=== PATIENT | female | born 1970 | race Caucasian/White ===

== ENCOUNTER 2016-11-05 11:27 | Observation (INO) | payer MEDICAID ==
[2016-11-05] MEDS: SOLU-Medrol 125 MG VIAL IVP SCH ×2 (15:15→21:32)
[2016-11-05] MEDS: MORPHINE SULFATE INJ 2 MG IVP PRN ×2 (15:15→19:51)
[2016-11-05 17:42] LABS: BASOPHILS # (AUTO) 0.1 X10^3/uL (0.0-0.1); BASOPHILS % (AUTO) 0.6 % (0.2-1.0); EOSINOPHILS % (AUTO) 0.4 % (0.9-2.9); HEMATOCRIT 42.4 % (36.0-47.0); HEMOGLOBIN 14.4 g/dL (12.0-16.0); MEAN CORPUSCULAR HEMOGLOBIN 29.9 pg (27.0-34.0); MEAN CORPUSCULAR HGB CONC 33.9 g/dL (33.0-35.0); MEAN CORPUSCULAR VOLUME 88.2 fL (80.0-100.0); MEAN PLATELET VOLUME 8.1 fL (7.4-11.0); MONOCYTES # (AUTO) 0.2 x10^3/uL (0.3-0.8); MONOCYTES % (AUTO) 1.8 % (0.0-13.0); NEUTROPHILS # (AUTO) 9.4 x10^3/uL (2.2-4.8); NEUTROPHILS % (AUTO) 80.2 % (42.0-75.0); PLATELET COUNT 395 X10^3/uL (150.0-450.0); RED CELL DISTRIBUTION WIDTH 14.1 % (11.6-16.5); WHITE BLOOD COUNT 11.7 X10^3/uL (3.6-10.0)
[2016-11-05 17:45] VITALS: BMI 27.7
[2016-11-05 17:53] LABS: ALANINE AMINOTRANSFERASE 20 Units/L (12-78); ALBUMIN 3.9 g/dL (3.4-5.0); ALKALINE PHOSPHATASE 96 Units/L (46-116); ASPARTATE AMINO TRANSFERASE 13 Units/L (15-37); BLOOD UREA NITROGEN 15 mg/dL (7-18); CALCIUM 9.1 mg/dL (8.5-10.1); CARBON DIOXIDE 30.4 mmol/L (21-32); CHLORIDE 104 mmol/L (98-107); COR NA(FOR HYPERGLY) 141 mmol/L (136-145); GLUCOSE 134 mg/dL (65-99); SODIUM 140 mmol/L (136-145); TOTAL PROTEIN 8.7 g/dL (6.4-8.2); eGFR BLACK RACES > 60 (>60); eGFR NON BLACK RACES > 60 (>60)
--- NOTE | 2016-11-05 18:47 | MRI ---
HISTORY: Low back pain. Study: MRI lumbar spine without contrast. Comparison: None. Technique: Multiplanar multi-sequence MRI of the lumbar spine was obtained. Sagittal T1, sagittal T 2, and stir weighted images, axial T1, and axial T2 images were obtained. Findings: Anatomic alignment without acute fracture or listhesis. Multilevel disc desiccation without signific ant disc height loss. The visualized bone marrow signal appears normal. Conus medullaris terminates at L1-L2. The visualized soft tissues appear normal. L1 -- L2: No significant disc bulge, neural foraminal narrowing, or spinal canal stenosis. L2 -- L3: No significant disc bulge, neural foraminal narrowing, or spinal canal stenosis. L3 -- L4: No significant disc bulge, neural foraminal narrowing, or spinal canal stenosis. L4 -- L5: Broad-based disc bulge that extends into the lateral recesses causing mild bilateral neura l foraminal narrowing. No significant spinal canal stenosis. L5 -- S1: Broad-based disc bulge that extends into the lateral recesses causing mild left neural for aminal narrowing. No significant right neural foraminal narrowing or spinal canal stenosis. Posterio r annular tear. IMPRESSION: Broad-based disc bulges at L4 through S1 causing mild neural foraminal narrowing. No sig nificant spinal canal stenosis. Reported By:
[2016-11-05 18:57] LABS: BILIRUBIN,URINE NEGATIVE (NEGATIVE); BLOOD/HEMOGLOBIN,URINE NEGATIVE (NEGATIVE); GLUCOSE, URINE NEGATIVE (NEGATIVE); KETONES,URINE NEGATIVE (NEGATIVE); LEUKOCYTE ESTERASE ,URINE NEGATIVE (NEGATIVE); NITRITES,URINE NEGATIVE (NEGATIVE); PROTEIN,URINE NEGATIVE (NEGATIVE); UROBILINOGEN,URINE NORMAL (NORMAL)
[2016-11-05 19:15] LABS: APPEARANCE,URINE CLEAR (CLEAR); BACTERIA,URINE NEGATIVE /HPF (NEGATIVE); COLOR,URINE YELLOW (YELLOW); RBC,URINE NONE SEEN /HPF (NEGATIVE); SQUAMOUS EPITHELIAL CELL,UR RARE /HPF (NEGATIVE)
[2016-11-05] MEDS ORDERED: BENTYL CAP 10 MG PO PRN (20:28)
[2016-11-05] MEDS ORDERED: ULTRAM PO PRN (20:28)
[2016-11-05] MEDS ORDERED: TYLENOL #3 TAB (W/CODEINE) PO PRN (20:28)
[2016-11-05] MEDS ORDERED: LYRICA CAP 100 MG PO PRN (20:28)
[2016-11-05] MEDS ORDERED: ALBUTEROL SULFATE INH PRN (20:28)
[2016-11-05] MEDS ORDERED: PROVENTIL NEB TX 0.083% 2.5MG/ 3ML NEB PRN (20:56)
[2016-11-05] MEDS ORDERED: PROVENTIL NEB TX 0.083% 2.5MG/ 3ML NEB SCH (21:00)
[2016-11-05] MEDS ORDERED: FLUTICASONE SALMETEROL INH SCH (21:00)
[2016-11-05] MEDS ORDERED: PULMICORT NEB TX 0.5 MG NEB SCH (21:00)
[2016-11-05] MEDS: FLEXERIL TAB 10 MG PO SCH (21:32)
[2016-11-05] MEDS: LIPITOR TAB 10 MG PO SCH (21:32)
[2016-11-06] MEDS: SOLU-Medrol 125 MG VIAL IVP SCH ×2 (05:37→13:33)
[2016-11-06] MEDS: MORPHINE SULFATE INJ 2 MG IVP PRN ×2 (05:37→11:39)
[2016-11-06] MEDS: FLEXERIL TAB 10 MG PO SCH ×2 (08:15→20:58)
--- NOTE | 2016-11-06 08:34 | DR.H&P ---
H&P - History & Physical for Day of: H&P Date: 11/05/16 - Chief Complaint Chief Complaint: BACK PAIN - Allergies Allergies/Adverse Reactions: Allergies Allergy/AdvReac Type Severity Reaction Status Date / Time Penicillins Allergy Verified 11/05/16 15:26 - Past Medical History Past Medical History: Asthma, Dyslipidemia Additional Medical History: Vitamin D deficiency, Fatty Liver, Lumbar Disc Protrusion - Past Surgical History Surgical History: Appendectomy, Hysterectomy - Family History Family Medical History: [place], Coronary Artery Disease, Hypertension - Social History Does patient currently use any type of tobacco product: No Have you used tobacco products in the last 12 months: No Type of Tobacco Use: None Does any household member use tobacco: Yes (DAUGHTER) Alcohol Use: None Drug Use: Prescription Drugs - Medications Home Medications: Acetaminophen/Codeine Tab [TYLENOL w/CODEINE #3 (300 MG/30 MG) *] 1 - 2 tab PO TID PRN 11/05/16 [History Confirmed 11/05/16] Albuterol Sulfate [Proventil HFA Inhaler 6.7 gm] 1 inh INH Q6H PRN 11/05/16 [ History Confirmed 11/05/16] Atorvastatin Calcium 10 mg PO HS 11/05/16 [History Confirmed 11/05/16] Cyclobenzaprine HCl [FLEXERIL 10 MG *] 10 mg PO BID 11/05/16 [History Confirmed 11/05/16] Dicyclomine HCl 1 tab PO Q6H PRN 11/05/16 [History Confirmed 11/05/16] Fluticasone-Salmeterol 500/50 [ADVAIR DISKUS 500/50 60-DOSE *] 1 inh INH BID [History Confirmed 11/05/16] Loratadine 10 mg 24-Hr Tab [LORATADINE 10 MG *] 1 tab PO DAILY 11/05/16 [ History Confirmed 11/05/16] Meloxicam 15 mg PO DAILY 11/05/16 [History Confirmed 11/05/16] Pregabalin [LYRICA 100 MG *] 1 cap PO BID PRN 11/05/16 [History Confirmed ] Tamsulosin HCl [Flomax] 0.4 mg PO DAILY 11/05/16 [History Confirmed 11/05/16] Tramadol HCl 50 mg PO TID PRN 11/05/16 [History Confirmed 11/05/16] - Review of Systems Constitutional: Other (Discomfort) Eyes: No Symptoms Reported ENT: No Symptoms Reported Respiratory: No Symptoms Reported Cardiovascular: No Symptoms Reported Gastrointestinal: No Symptoms Reported Genitourinary: No Symptoms Reported Musculoskeletal: Back Pain Skin: No Symptoms Reported Neurological: No Symptoms Reported - Physical Exam Vital Signs: Temperature 97.8 F Pulse Rate [Right Radial] 57 Respiratory Rate 20 Blood Pressure [Left Arm] 115/64 O2 Sat by Pulse Oximetry 95 Oriented: Normal Eyes: Normal Ear: Normal Nose: Normal Throat: Normal Respiratory: Clear Throughout Cardiovascular: Normal : Normal Auscultation: Bowel Sounds: Normal Palpation: Normal Tenderness: Normal Skin: Normal Musculoskeletal: Back:Lumbar, Tender Psychiatric: Normal Mood Description: Calm Affect: Normal Speech Pattern: Clear - Assessment/Plan (1) Low back pain Qualifiers: Chronicity: acute Back pain laterality: B Sciatica presence: S Sciatica laterality: S Status: Acute Plan: MRI Lumbar Spine, PT Consult, IV Morphine, IV Solumedrol (2) Protrusion of intervertebral disc of lumbosacral region Status: Acute Plan: MRI Lumbar Spine, PT Consult, IV Morphine, IV Solumedrol
[2016-11-06] MEDS ORDERED: MOBIC TAB 15 MG PO SCH (09:00)
[2016-11-06] MEDS ORDERED: CLARITIN PO SCH (09:00)
[2016-11-06] MEDS ORDERED: FLOMAX PO SCH (09:00)
[2016-11-06 20:08] VITALS: BP 106/55
[2016-11-06] MEDS ORDERED: NORCO 5/325 MG TAB PO ONE (20:29)
[2016-11-06] MEDS: LIPITOR TAB 10 MG PO SCH (20:58)
== END 2016-11-06 20:55 | disposition home or self-care (01) ==
LOC: OBS 11:27 → MED/SURG 12:06
PROVIDERS: ADMIT Internal Medicine; ATTEND Internal Medicine
DX: M54.5 Low back pain (principal); D72.828 Other elevated white blood cell count; R73.09 Other abnormal glucose; E78.2 Mixed hyperlipidemia; M51.27 Other intervertebral disc displacement, lumbosacral region
CPT/HCPCS: 36415; 72148; 80053; 81001; 85025; A4216; A4222; G0378; J2270; J2930